=== PATIENT | female | born 1990 ===

== ENCOUNTER 2020-12-21 17:55 | Emergency (ER) | payer SELFPAY ==
[2020-12-21] MEDS ORDERED: Ketorolac 30 MG/ML SDV IM ONE (19:32)
[2020-12-21] MEDS ORDERED: Orphenadrine 60 MG/2 ML Inj IM ONE (19:32)
--- NOTE | 2020-12-21 19:39 | EDM.PDOC ---
ED HPI GENERAL MEDICAL PROBLEM - General Chief Complaint: Back Pain or Injury Stated Complaint: BACK PAIN, NUMBNESS, PASSED OUT Time Seen by Provider: 12/21/20 19:11 Source of Information: Reports: Patient History Limitations: Reports: No Limitations - History of Present Illness INITIAL COMMENTS - FREE TEXT/NARRATIVE: 30-year-old female presents with acute onset right low back pain. 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 She felt a sharp pain rated 10/10 acutely to the right lumbar paraspinal region at 4:30 PM. She broke out in a sweat. She did not take any medication. Pain is nonradiating, exacerbated with range of motion, alleviated with immobilization. Pain currently rated 4/10. She denies fever, chills, history of IVDA, urinary or fecal incontinence, lower extremity numbness or weakness. ROS: A 10-point review of systems, other than pertinent positives and negatives as stated per HPI, is otherwise negative Past medical history: No additional pertinent history Past Surgical history: No additional pertinent history Social history: No additional pertinent history Family history: No additional pertinent history PHYSICAL EXAM General: AOx4, GCS = 15, mild distress HEENT: dry mucous membrane Neck: supple, no meningismus, no Kernig or Brudzinski Cardiac: S1S2 RRR Respiratory: CTAB, no crackles or rales, no wheezing Abdomen: Soft, nontender, no rebound or guarding, nondistended, no pulsatile mass. Back: nontender to C/T/L-spine, right lumbar paraspinal muscle tender and spastic. Negative straight leg raise. Musculoskeletal: NVI distally, no deformity Neuro: No focal deficits, CN 2 - 12 WNL. 5/5 strength with plantar and dorsiflexion of bilateral feet. Left Upper Pain Score (Numeric/FACES): 4 - Related Data Allergies Allergy/AdvReac Type Severity Reaction Status Date / Time No Known Allergies Allergy Verified 12/21/20 18:37 Home Meds: Home Meds Cyclobenzaprine [Flexeril] 5 mg PO BID PRN #10 tab 12/21/20 [Rx] Ibuprofen 800 mg PO Q6HR #15 tablet 12/21/20 [Rx] Levonorgestrel/Ethin.estradiol [Lillow-28 Tablet] 12/21/20 [History] Past Medical History - Past Health History Medical/Surgical History: Denies Medical/Surgical History - Infectious Disease History Infectious Disease History: Reports: None Social & Family History - Family History Family Medical History: No Pertinent Family History - Tobacco Use Tobacco Use Status *Q: Never Tobacco User - Caffeine Use Caffeine Use: Reports: None - Recreational Drug Use Recreational Drug Use: No ED ROS GENERAL - Review of Systems Review Of Systems: See Below (see dictation) ED EXAM, GENERAL - Physical Exam Exam: See Below (see dictation) Course - Vital Signs Last Recorded V/S: Last Vital Signs Temp 98.3 F 12/21/20 18:38 Pulse 74 12/21/20 18:38 Resp 18 12/21/20 18:38 BP 115/79 12/21/20 18:38 Pulse Ox 99 12/21/20 18:38 - Orders/Labs/Meds Labs: Laboratory Tests 12/21/20 12/21/20 Range/Units 20:10 20:10 Urine Color YELLOW Urine Appearance CLEAR Urine pH 6.0 (5.0-8.0) Ur Specific [facility] 1.025 (1.001-1.035) Urine Protein NEGATIVE (NEGATIVE) mg/dL Urine Glucose (UA) NEGATIVE (NEGATIVE) mg/dL Urine Ketones NEGATIVE (NEGATIVE) mg/dL Urine Occult Blood TRACE-INTACT H (NEGATIVE) Urine Nitrite NEGATIVE (NEGATIVE) Urine Bilirubin NEGATIVE (NEGATIVE) Urine Urobilinogen 0.2 (<2.0) EU/dL Ur Leukocyte Esterase NEGATIVE (NEGATIVE) Urine RBC 0-2 (0-2/HPF) Urine WBC 2-4 (0-5/HPF) Ur Epithelial Cells FEW (NONE-FEW) Urine Bacteria FEW (NEGATIVE) Urine Mucus MODERATE (NONE-MOD) Urine HCG, Qual NEGATIVE (NEGATIVE) Meds: Medications Discontinued Medications Generic Name Dose Route Start Last Admin Trade Name Freq PRN Reason Stop Dose Admin Ketorolac Tromethamine 30 mg 12/21/20 19:32 12/21/20 19:39 Ketorolac 30 Mg/Ml Sdv IM 12/21/20 19:33 30 mg ONETIME ONE Administration Orphenadrine Citrate 60 mg 12/21/20 19:32 12/21/20 19:40 Orphenadrine 60 Mg/2 Ml Inj IM 12/21/20 19:33 60 mg ONETIME ONE Administration - Re-Assessments/Exams Free Text/Narrative Re-Assessment/Exam: 12/21/20 20:46 after IM Toradol and Norflex in the ER, her back pain improved and is currently stable for discharge. I performed a repeat exam and did not appreciate new abnormal findings. Patient exhibits normal vital signs and has a normal gait on road test. I advised the patient to return to the ER for reevaluation if symptoms worsened, including fever, worsening pain, or any other worrisome symptoms. I instructed the patient to follow up with their PCP within 2-3 days. MEDICAL DECISION MAKING: I reviewed the patients past medical records, lab and radiographic findings. I discussed the case with the patient. My differential diagnosis included: Musculoskeletal strain. Patient's back pain is suggestive of musculoskeletal strain, with reproducible tenderness and swelling to the right paralumbar region. There are no complaints of urinary or fecal incontinence, focal numbness or weakness. The patient has a normal gait in the ER. There is no evidence of fever, IV drug use, recent back surgery, or immunocompromised state. I do not suspect caude equine syndrome or cord compression which would warrant further imaging. Departure - Departure Time of Disposition: 20:48 Disposition: Home, Self-Care 01 Condition: Good Clinical Impression: Low back strain - Discharge Information *PRESCRIPTION DRUG MONITORING PROGRAM REVIEWED*: Not Applicable *COPY OF PRESCRIPTION DRUG MONITORING REPORT IN PATIENT DINAH: Not Applicable Prescriptions: Cyclobenzaprine [Flexeril] 5 mg PO BID PRN #10 tab PRN Reason: Pain Ibuprofen 800 mg PO Q6HR #15 tablet Instructions: Lumbosacral Strain Referrals: PCP,None [Primary Care Provider] - Forms: ED Department Discharge Additional Instructions: The need for follow-up, as well as the timing and circumstances, are variable depending upon the specifics of your emergency department visit. If you don't have a primary care physician on staff, we will provide you with a referral. We always advise you to contact your personal physician following an emergency department visit to inform them of the circumstance of the visit and for follow-up with them and/or the need for any referrals to a consulting specialist. The emergency department will also refer you to a specialist when appropriate. This referral assures that you have the opportunity for follow-up care with a specialist. All of these measure are taken in an effort to provide you with optimal care, which includes your follow-up. Under all circumstances we always encourage you to contact your private physician who remains a resource for coordinating your care. When calling for follow-up care, please make the office aware that this follow-up is from your recent emergency room visit. If for any reason you are refused follow-up, please contact the [facility] Emergency Department at and asked to speak to the emergency department charge nurse. If you do not have a primary care doctor, please follow up with the clinics below within 3-5 days. [facility] [address] [place] [id number] [facility] [address] [place] [id number] Sepsis Event Note (ED) - Focused Exam Vital Signs: Vital Signs Temp Pulse Resp BP Pulse Ox 12/21/20 18:38 98.3 F 74 18 115/79 99
== END 2020-12-21 20:57 | disposition home or self-care (01) ==
LOC: MW.ED 17:55
DX: S39.012A Strain of muscle, fascia and tendon of lower back, initial encounter (principal); X50.1XXA Overexertion from prolonged static or awkward postures, initial encounter; Y92.219 Unspecified school as the place of occurrence of the external cause; Y99.0 Civilian activity done for income or pay
CPT/HCPCS: 81001; 81025; 96372; 99283; J1885; J2360